=== PATIENT | female | born 1945 | race Caucasian/White ===

== ENCOUNTER → 2018-06-23 | Outpatient (CLI) | payer OTHER | LOC: RAD 01:37 | DX: Z12.31 Encounter for screening mammogram for malignant neoplasm of breast (principal) ==

== ENCOUNTER → 2018-07-06 | Outpatient (CLI) | payer OTHER | LOC: ULTRA 01:09 | DX: R92.2 Inconclusive mammogram (principal); R92.8 Other abnormal and inconclusive findings on diagnostic imaging of breast ==

== ENCOUNTER → 2019-07-25 | Outpatient (CLI) | payer OTHER | LOC: RAD 10:05 | DX: Z12.31 Encounter for screening mammogram for malignant neoplasm of breast (principal); N63.20 Unspecified lump in the left breast, unspecified quadrant ==

== ENCOUNTER → 2019-07-27 | Outpatient (CLI) | payer OTHER | LOC: CAT 10:39 | DX: K76.89 Other specified diseases of liver (principal); Z87.891 Personal history of nicotine dependence ==

== ENCOUNTER → 2020-08-07 | Outpatient (CLI) | payer OTHER | LOC: CAT 08:08 | PROVIDERS: ATTEND Internal Medicine | DX: Z12.31 Encounter for screening mammogram for malignant neoplasm of breast (principal); R91.1 Solitary pulmonary nodule; M47.815 Spondylosis without myelopathy or radiculopathy, thoracolumbar region; M41.84 Other forms of scoliosis, thoracic region; Z87.891 Personal history of nicotine dependence ==

== ENCOUNTER → 2020-08-07 | Outpatient (CLI) | payer OTHER | LOC: CAT 08:11 | PROVIDERS: ATTEND Internal Medicine | DX: Z13.6 Encounter for screening for cardiovascular disorders (principal); I25.10 Atherosclerotic heart disease of native coronary artery without angina pectoris; E78.00 Pure hypercholesterolemia, unspecified ==

== ENCOUNTER → 2021-07-28 | Outpatient (CLI) | payer OTHER | LOC: CAT 11:05 | PROVIDERS: ATTEND Internal Medicine | DX: Z13.6 Encounter for screening for cardiovascular disorders (principal); E78.00 Pure hypercholesterolemia, unspecified; I25.10 Atherosclerotic heart disease of native coronary artery without angina pectoris ==